=== PATIENT | female | born 1990 | race Asian ===

== ENCOUNTER 2020-07-21 11:56 | Emergency (ER) | payer OTHER ==
[~2020-07-21] VITALS: Ht 157.5 cm; Wt 65.9 kg
[2020-07-21 12:13] VITALS: TEMP 97.9
[2020-07-21 12:26] LABS: COLLECTION METHOD CLEAN CATCH
[2020-07-21 12:49] LABS: AMORPHOUS CRYSTAL Present /uL; MUCOUS Present /lpf; PH 7 (5-8); SQUAMOUS EPITHELIAL 0-2 /hpf; URINE APPEARANCE Hazy; URINE BACTERIA Rare /hpf; URINE BILIRUBIN Negative (NEGATIVE); URINE BLOOD 2+ (NEGATIVE); URINE COLOR Yellow; URINE GLUCOSE Negative (NEGATIVE); URINE KETONE Negative (NEGATIVE); URINE LEUKOCYTE ESTERASE Negative (NEGATIVE); URINE NITRATE Negative (NEGATIVE); URINE PROTEIN(semi-quant) Negative (NEGATIVE); URINE RBC 0-2 /hpf; URINE UROBILINOGEN Negative (NEGATIVE)
[2020-07-21 13:47] VITALS: BP 108/77; PULSE 63
== END 2020-07-21 13:49 | disposition home or self-care (01) ==
LOC: COL.ER 11:56
PROVIDERS: Physician Assistant
DX: O20.9 Hemorrhage in early pregnancy, unspecified (principal); Z3A.12 12 weeks gestation of pregnancy

== ENCOUNTER → 2020-12-03 | Outpatient (CLI) | payer OTHER ==
[~2020-12-03] MED LIST: BREASTPUMP MC; DIABETA 2.5MG2.5 MG PO; MOTRIN 800800 MG/TAB PO; PERCOCET 325 MG1 TA2 PO; PRENATAL TABLET PO; PRILOSEC 20MG20 MG PO
== END ==
LOC: DIA.ED 13:40
DX: O24.419 Gestational diabetes mellitus in pregnancy, unspecified control (principal)
CPT/HCPCS: G0108

== ENCOUNTER → 2020-12-26 | Outpatient (CLI) | payer SELFPAY | LOC: DIA.ED 08:49 | DX: O24.419 Gestational diabetes mellitus in pregnancy, unspecified control (principal) | CPT/HCPCS: G0108 ==

== ENCOUNTER 2021-01-18 08:48 | Inpatient (IN) | payer OTHER ==
[~2021-01-18] VITALS: Ht 157.5 cm; Wt 74.1 kg
[2021-01-21] VITALS (37 sets, daily range): BP systolic 89–139; BP diastolic 50–91; PULSE 72–129; TEMP 97.2–98.1
--- NOTE | 2021-01-21 06:25 | NUR ---
Presents to L&D for scheduled induction of labor. Ambulatory to unit. Accompanied by spouse.
--- NOTE | 2021-01-21 06:55 | NUR ---
Pit start @ 2mU/min @ this time. Attempted SVE, patient unable to relax, this sql report writer unable to reach cervix. Patient requests this sql report writer stop SVE.
[2021-01-21] MEDS ORDERED: DIABETA 2.5MG2.5 MG PO (07:11)
[2021-01-21] MEDS ORDERED: PRENATAL TABLET PO (07:12)
[2021-01-21] MEDS ORDERED: PRILOSEC 20MG20 MG PO (07:12)
--- NOTE | 2021-01-21 07:15 | NUR ---
BG 81 @ this time. Note, approximately 2 hours post parandial per patient statement. Denies checking FBS this am.
[2021-01-21 07:26] LABS: HEMOGLOBIN 11.7 g/dl (12.5-16.0); MEAN CELL VOLUME 84 fl (80.0-100.0); MEAN CORPUSCULAR HEMOGLOBIN 28 pg (27.0-31.0); MEAN CORPUSCULAR HGB CONC 33 g/dl (33.0-37.0); MEAN PLATELET VOLUME 12.9 fl (7.4-10.4); PLATELET COUNT 260 K/mm3 (130-400); RED BLOOD COUNT 4.18 M/mm3 (4.10-5.30); REDCELL DISTRIBUTION WIDTH-CV 13.6 % (11.5-14.5)
[2021-01-21 07:30] LABS: HEMATOCRIT 35.3 % (37.0-47.0)
--- NOTE | 2021-01-21 08:04 | NUR ---
0804- here for am rounds, evaluation.
[2021-01-21 08:05] LABS: BAND 4 % (0-10); EOSINOPHIL 2 % (0-4); LYMPHOCYTE 33 % (20.0-51.0); METAMYELOCYTE 1 % (0-0); NEUTROPHILS 54 % (42.0-75.2); PLATELET ESTIMATE NORMAL (NORMAL)
--- NOTE | 2021-01-21 08:08 | NUR ---
AROM by , clear fluid noted. Note, patient intolerable of SVE. Discussion of epidural when she wants it.
--- NOTE | 2021-01-21 08:46 | NUR ---
Requests epidural at this time. Rajwinder eRmy CRNA, notified. LR bolus begun.
--- NOTE | 2021-01-21 09:28 | NUR ---
Test dose administered by WEIGHT YARDAGE CHECKER. No adverse reactions noted. Tolerates procedure well.
--- NOTE | 2021-01-21 10:00 | NUR ---
LR bag changed out, as noted, hole in bag; leaking onto floor.
--- NOTE | 2021-01-21 10:03 | NUR ---
Repositioned to right lateral with peanut ball.
--- NOTE | 2021-01-21 10:28 | NUR ---
Repositioned to left lateral with peanut ball.
--- NOTE | 2021-01-21 10:31 | NUR ---
Note contraction tracing is inverted, this radio news writer palpates patient abdomen for 7 minutes, early decelerations noted.
--- NOTE | 2021-01-21 11:40 | NUR ---
C/O pain on right side with contractions. Repositioned to right lateral, FILL PLANT OPERATOR epidural bolus button pushed.
--- NOTE | 2021-01-21 11:52 | NUR ---
Note contraction pattern tracing again inverted while patient is positioned laterally.
--- NOTE | 2021-01-21 12:05 | NUR ---
Salinas catheter removed by this grant writer prior to beginning pushing efforts.
--- NOTE | 2021-01-21 12:08 | NUR ---
Pushing efforts begun with instruction.
--- NOTE | 2021-01-21 13:20 | NUR ---
here for evaluation. Discusses with patient she recommends to proceed with vacuum assisted vaginal delivery. Explains risks/benefits. Patient et patient spouse agreeable to plan of care. Indication per tachycardia/maternal exhaustion.
--- NOTE | 2021-01-21 13:25 | NUR ---
Red Hosea catheter by @ this time prior to vac assist.
--- NOTE | 2021-01-21 13:30 | NUR ---
1326-Vacuum applied by . 1327-Suction applied with vacuum, assisted with 3 pulls prior to first pop-off @ 1328. 1329-Vacuum reapplied/suction applied by . 1330-Vacuum assisted vaginal delivery of head by , quickly followed by body. Vacuum assisted vaginal delivery of female infant by . Infant placed on maternal abdomen. Umbilical cord doubly clamped and cut by . Infant placed on maternal chest by nursery nurse. Note nursery nurses Alex and Arlene, RNs. 1334-Spontaneous vaginal delivery of placenta by . Pit bolus begun immediately following. works to repair 2nd degree perineal laceration and periurethral laceration, using 2-[address]-1, and 4-0 Vicryl on SH, respectively. gives verbal order to send placenta to pathology for GDM-2, and SGA. Cord gases obtained per verbal order for tachycardia. 1335-Red lew catheter by , estimated 20 mL urine return.
--- NOTE | 2021-01-21 16:00 | NUR ---
Assisted out of bed for first time post delivery. Steady gait noted. C/O mild dizziness. Denies nausea/lightheadedness. Color remains WNL. Unable to spontaneously void @ this time. Asmita care provided. Mesh underwear, asmita pad, ice pack applied. Ambulates to room 214, post to follow. Tolerates well. Oriented to post room. Instructed on need to measure next 3 voids. Verbalizes understanding.
[2021-01-22 04:00] VITALS: BP 100/52; PULSE 64; TEMP 97.8
--- NOTE | 2021-01-22 09:31 | NUR ---
Initial visit attempt; family resting, [employer] Sales Representative left card of congratulations and God's blessings for the of their daughter and information regarding the availability of spiritual care at our hospital.
[2021-01-22 11:00] VITALS: BP 102/58; PULSE 62; TEMP 98.4
[2021-01-22 20:30] VITALS: BP 91/61; PULSE 87; TEMP 98
[2021-01-23] MEDS ORDERED: MOTRIN 800800 MG/TAB PO (07:39)
[2021-01-23] MEDS ORDERED: PERCOCET 325 MG1 TA2 PO (07:39)
[2021-01-23 09:11] VITALS: BP 110/61; PULSE 77; TEMP 98.2
[2021-01-23] MEDS ORDERED: BREASTPUMP MC (09:37)
--- NOTE | 2021-01-23 13:45 | NUR ---
1345-Reviewed discharge instructions with patient. Provied new prescriptions and appointment information. Denies questions. 1410-Ambulatory off unit with and spouse.
== END 2021-01-23 14:10 | disposition home or self-care (01) | DRG 807 ==
LOC: LDR 01-21 06:15 → OB 01-21 06:15 → LDR 01-21 08:47 → OB 01-21 16:15
PROVIDERS: ADMIT Obstetrics & Gynecology
PROC: 10D07Z6 Extraction of Products of Conception, Vacuum, Via Natural or Artificial Opening (ICD-10-PCS; principal; 2021-01-21)
PROC: 0KQM0ZZ Repair Perineum Muscle, Open Approach (ICD-10-PCS; 2021-01-21)
PROC: 3E033VJ Introduction of Other Hormone into Peripheral Vein, Percutaneous Approach (ICD-10-PCS; 2021-01-21)
PROC: 10907ZC Drainage of Amniotic Fluid, Therapeutic from Products of Conception, Via Natural or Artificial Opening (ICD-10-PCS; 2021-01-21)
DX: O24.425 Gestational diabetes mellitus in childbirth, controlled by oral hypoglycemic drugs (principal); Z37.0 Single live birth; O36.5930 Maternal care for other known or suspected poor fetal growth, third trimester, not applicable or unspecified; O76 Abnormality in fetal heart rate and rhythm complicating labor and delivery; O75.81 Maternal exhaustion complicating labor and delivery; O70.1 Second degree perineal laceration during delivery; Z3A.39 39 weeks gestation of pregnancy; Z23 Encounter for immunization
CPT/HCPCS: J2590; J7120